=== PATIENT | male | born 1965 | race Caucasian/White ===

== ENCOUNTER → 2017-02-14 | Outpatient (CLI) | payer OTHER ==
[~2017-02-14] VITALS: Ht 177.8 cm; Wt 108.9 kg
[~2017-02-14] MED LIST: ASPI1TAB PO; BELV10TA PO; CLAR10CA3 PO; CRES5TAB PO; HYDR10TAB PO; HYDR25TAB PO; METO-209 PO; NS 1,000 ML IV SCH; PRIL20CA9 PO; PROPOFOL 200 MG/20 ML VIAL As Ordered ONE; ePHEDrine INJ 50 MG/ML VIAL As Ordered ONE
--- NOTE | 2017-02-14 09:19 | ROOR ---
Patient Name: Shivam Magaña Procedure Date: 02/14/2017 8:59 AM Date of : 1965 Age: 51 Room: [facility] Gender: Male Note Status: Finalized Procedure: Colonoscopy to Cecum + Cold Snare Polypectomy Indications: Screening for colorectal malignant neoplasm Providers: Tomasz Perez MD Referring MD: DOUG YAP MD Requesting Provider: Medicines: Monitored Anesthesia Care Complications: No immediate complications. Procedure: Pre-Anesthesia Assessment: - The heart rate, respiratory rate, oxygen saturations, blood pressure, adequacy of pulmonary ventilation, and response to care were monitored throughout the procedure. The Colonoscope was introduced through the anus and advanced to the cecum, identified by appendiceal orifice and ileocecal valve. The colonoscopy was performed without difficulty. The patient tolerated the procedure well. The quality of the bowel preparation was excellent. Findings: The perianal and digital rectal examinations were normal. No other significant abnormalities were identified in a careful examination of the remainder of the colon. A small polyp was found at 60 cm proximal to the anus. The polyp was sessile. The polyp was removed with a cold snare. Resection and retrieval were complete. The exam was otherwise without abnormality on direct and retroflexion views. Impression: - One small polyp at 60 cm proximal to the anus, removed with a cold snare. Resected and retrieved. - The examination was otherwise normal on direct and retroflexion views. - The exam was otherwise normal to the cecum. Recommendation: - Patient has a contact number available for emergencies. The signs and symptoms of potential delayed complications were discussed with the patient. Return to normal activities tomorrow. Written discharge instructions were provided to the patient. - High fiber diet. - Discharge patient to home. - Continue present medications. - Await pathology results. - Repeat colonoscopy in 5 years for surveillance based on pathology results. - Return to referring physician. - The findings and recommendations were discussed with the patient's family. - Check Portal Online for Path Results.([email or web address]) Tomasz Perez MD Tomasz Perez MD 02/14/2017 9:18:35 AM This report has been signed electronically. Number of Addenda: 0 Note Initiated On: 02/14/2017 8:59 AM Estimated Blood Loss: Estimated blood loss: none.
[2017-02-14 09:30] VITALS: BP 148/86
== END ==
LOC: M OPP 08:06
PROVIDERS: ATTEND Internal Medicine Gastroenterology
DX: Z12.11 Encounter for screening for malignant neoplasm of colon (principal); D12.6 Benign neoplasm of colon, unspecified; Z79.82 Long term (current) use of aspirin; Z79.899 Other long term (current) drug therapy; I10 Essential (primary) hypertension; E78.00 Pure hypercholesterolemia, unspecified; E78.5 Hyperlipidemia, unspecified; K21.9 Gastro-esophageal reflux disease without esophagitis; G47.30 Sleep apnea, unspecified

== ENCOUNTER → 2017-08-22 | Outpatient (CLI) | payer OTHER ==
[~2017-08-22] MED LIST changes: -METO-209 PO; +METO1TAB33 PO; -NS 1,000 ML IV SCH; -PROPOFOL 200 MG/20 ML VIAL As Ordered ONE; -ePHEDrine INJ 50 MG/ML VIAL As Ordered ONE
[2017-08-22 08:39] LABS: ANION GAP 9 MEQ/L (8-16); BLOOD UREA NITROGEN 17 MG/DL (7-18); CALCIUM LEVEL 9.1 MG/DL (8.5-10.1); CARBON DIOXIDE LEVEL 27 MEQ/L (21-32); CHLORIDE LEVEL 104 MEQ/L (98-107); CREATININE FOR GFR 1.31 MG/DL (0.70-1.30); GLOMERULAR FILTRATION RATE > 60.0 (>56); GLUCOSE, FASTING 125 MG/DL (70-105); POTASSIUM SERUM 4.5 MEQ/L (3.5-5.1); SODIUM LEVEL 140 MEQ/L (136-145)
--- NOTE | 2017-08-22 08:46 | ECGEPIP ---
Stationary ECG Study [facility] Test Date: 2017-08-22 Pat Name: RADHA PATEL Department: Room: - Gender: M Ladler: : 1965 Requested By: MILAD RAJPUT Order Number: [id number] Reading MD: Paola Sanchez Measurements Intervals [place] Rate: 48 P: 34 RI: 179 QRS: 32 QRSD: 94 T: 17 QT: 436 QTc: 390 Interpretive Statements SINUS BRADYCARDIA NO PRIOR Electronically Signed On 08-22-2017 8:45:48 EDT by Paola Sanchez
== END ==
LOC: M LAB 07:40
PROVIDERS: ATTEND Anesthesiology
DX: Z01.812 Encounter for preprocedural laboratory examination (principal); I10 Essential (primary) hypertension; E78.00 Pure hypercholesterolemia, unspecified; K21.9 Gastro-esophageal reflux disease without esophagitis; R00.1 Bradycardia, unspecified

== ENCOUNTER 2024-04-14 07:45 | Day surgery (SDC) | payer OTHER ==
[~2024-04-14] VITALS: Ht 177.8 cm; Wt 102.1 kg
[~2024-04-14 07:45] MED LIST changes: -ASPI1TAB PO; +ASPI81TA26 PO; +CETI10CA13 PO; +HYDR-161 PO; +HYDR-3490 PO; -HYDR10TAB PO; -HYDR25TAB PO; +ICOS1CAP PO; +LISI10TA22 PO; +LISI5TAB11 PO; +METF500T13 PO; +OMEP20TA2 PO; +ROSU5TAB40 PO; +SEMA7TAB2 PO
[2024-04-14] MEDS: NS 1,000 ML IV ONE (08:01)
[2024-04-14] MEDS ORDERED: SEMA14TA2 PO (08:14)
[2024-04-14] MEDS ORDERED: MELA5CAP2 PO (08:16)
[2024-04-14] MEDS ORDERED: propofoL 200 MG/20 ML VIAL As Ordered ONE (08:59)
[2024-04-14] MEDS ORDERED: LIDOCAINE 2% 100MG/5ML SDV (FOR ANES.) As Ordered ONE (08:59)
[2024-04-14 09:21] VITALS: TEMP 97.2
[2024-04-14 09:41] VITALS: BP 150/78; O2SAT 98
== END 2024-04-14 09:45 | disposition home or self-care (01) ==
LOC: M OPP 07:45
PROVIDERS: ATTEND Internal Medicine Gastroenterology
DX: Z12.11 Encounter for screening for malignant neoplasm of colon (principal); Z86.010 Personal history of colon polyps; K64.0 First degree hemorrhoids; K57.30 Diverticulosis of large intestine without perforation or abscess without bleeding; I10 Essential (primary) hypertension; E11.9 Type 2 diabetes mellitus without complications; G47.30 Sleep apnea, unspecified; Z99.89 Dependence on other enabling machines and devices; Z79.82 Long term (current) use of aspirin; Z79.84 Long term (current) use of oral hypoglycemic drugs; Z79.899 Other long term (current) drug therapy; Z87.891 Personal history of nicotine dependence